=== PATIENT | female | born 1945 | race Caucasian/White ===

== ENCOUNTER 2016-06-19 11:06 | Day surgery (SDC) | payer MEDICARE, BC ==
[~2016-06-19 11:06] MED LIST: RINGERS SOLUTION,LACTATED 1,000 ML IV PRN
--- OUTSIDE RECORDS SUMMARY | 2016-06-19 11:11 | XMS REPORT | Continuity of Care Document ---
:1945 Author Organization [facility] ([facility]) Address [place] [address] Phone [phone] Support Name Relationship Address Phone Unavailable [address] [phone] [place] [address] Unavailable [employer] [address] [phone] [place] [address] Care Team Providers Name Role Phone Unavailable Primary Care Provider Unavailable Source Comments This disclosure is being made pursuant to the Care Everywhere program, applicable federal and state laws, and may not contain all informaitonavailable regarding this patient.[facility] ([facility]) Active Allergies and Adverse Reactions Not on File Current Medications Not on file Active Problems Not on file Social History Tobacco Use Types Packs/Day Years Used Date Never Assessed Plan of Care Health Maintenance Due Date Last Done Comments HCV Screening 1945 Hepatitis B Vaccine (1 of 3 - Primary Series) 1945 Tdap Vaccine 1956 Lipid Disorder Screening 07/31/1963 Td Vaccine 07/31/1963 Mammogram 1985 Colonoscopy 1995 Zoster Vaccine 2005 Osteoporosis Screening (DXA Bone Density) 2010 Pneumococcal Vaccine (1 of 2 - PCV13) 2010 Influenza Vaccine: Seasonal (#1) 11/15/2015 Results from Last 3 Months Not on file
--- OUTSIDE RECORDS SUMMARY | 2016-06-19 11:11 | XMS REPORT | Continuity of Care Document ---
:1945 Author Organization [employer] [place] [address] Care Team Providers Name Role Phone Provider, None Per Patient Primary Care Provider Unavailable Source Comments This disclosure is being made pursuant to the AudioCaseFiles program and maynot contain all information available regarding this patient.[employer] Active Allergies and Adverse Reactions Allergen Noted Date Severity Reactions Comments Sulfa Antibiotics 11/03/2015 Low Rash Current Medications Be aware that medications may not be up to date as of this document. Alwaysverify current medications with the patient. Prescription Sig. Disp. Refills Start Date End Date Status ALPRAZolam (XANAX) 1 MG TK 1 T PO 30 0 09/09/2015 Active tablet MINUTES PRIOR TO MRI AND REPEAT IF NEEDED omeprazole (PRILOSEC) 20 TK 1 C PO BID 4 09/20/2015 Active MG capsule verapamil (CALAN-SR) 240 TK 1 T PO QD 1 09/29/2015 Active MG CR tablet WITH FOOD simvastatin (ZOCOR) 20 MG TK 1 T PO QD 0 10/28/2015 Active tablet IN THE EVENING citalopram (CELEXA) 40 MG TK 1 T PO QD 2 10/28/2015 Active tablet hydrochlorothiazide TK 1 C PO QD 0 08/11/2015 Active (MICROZIDE) 12.5 MG capsule levothyroxine (SYNTHROID, TK 1 T PO QD 1 08/27/2015 Active LEVOTHROID) 25 MCG tablet busPIRone (BUSPAR) 15 MG TK 1 T PO BID 1 10/28/2015 Active tablet aspirin 81 MG EC tablet Take 81 mg by Active mouth daily. fish oil 1000 MG CAPS Take 1,000 mg Active by mouth daily. Calcium Carbonate-Vit Take by Active D-Min (CALCIUM 1200 PO) mouth. vitamin D Take 1,000 Active (CHOLECALCIFEROL) 1000 Units by mouth UNITS tablet daily. vitamin E 400 UNIT capsule Take 400 Units Active by mouth daily. Ascorbic Acid (VITAMIN C) Take 500 mg by Active 500 MG tablet mouth daily. HYDROcodone-acetaminophen Take 1 tablet 15 tablet 0 11/04/2015 Active (NORCO) 5-325 MG per by mouth every tablet 6 (six) hours as needed for Pain. Active Problems No known active problems Most Recent Encounters Date Type Specialty Providers Description 03/30/2016 Data Import Social History Tobacco Use Types Packs/Day Years Used Date Never Smoker Smokeless Tobacco: Never Used Last Filed Vital Signs Vital Sign Reading Time Taken Blood Pressure 122/60 11/03/2015 1:42 PM CDT Pulse 76 11/03/2015 1:42 PM CDT Temperature 37.4 C (99.3 F) 11/03/2015 1:42 PM CDT Respiratory Rate 16 11/03/2015 1:42 PM CDT Height - - Weight 81.194 kg (179 lb) 11/03/2015 1:42 PM CDT Body Mass Index - - Oxygen Saturation - - Plan of Care Health Maintenance Due Date Last Done Comments Hepatitis C Screening 07/31/1963 Tetanus/Pertussis (1 - Tdap) 1964 Colonoscopy 07/31/1995 Mammogram 07/31/1995 Well Adult Visit 07/31/1995 Zoster Vaccine 60+ 2005 Bone Density 2010 Pneumococcal Low/Medium Risk 65+ (1 of 2 - PCV13) 2010 Influenza Immunization (#1) 2015 Results from Last 3 Months Not on file
--- OUTSIDE RECORDS SUMMARY | 2016-06-19 11:12 | XMS REPORT | Summary of Care ---
:1945 Author Organization [facility] Address [address] [place] [id number] Care Team Providers Name Role Phone Diallo Pimentel Primary Care Physician Encounter Date(s): 08/31/15 - 08/31/[address] [id number] Discharge Disposition: 01 Discharged to Home or Self Care Attending Physician: Keyla Barakat MD Admitting Physician: Keyla Barakat MD Vital Signs No data available for this section Problem List Condition Effective Dates Status Health Status Informant Anxiety depression(Confirmed) Active Gastroesophageal reflux(Confirmed) Active Heart murmur(Confirmed) Active Hyperlipidemia(Confirmed) Active Hypertension(Confirmed) Active Hypothyroidism(Confirmed) Active Allergies, Adverse Reactions, Alerts Substance Reaction Severity Status Sulfur rash Active Medications aspirin 81 mg oral tablet 1 tab(s), Oral, Daily, # 30 tab(s), 0 Refill(s), Start Date: 08/23/15 13:43:00 CDT Start Date: 08/23/15 Status: OrderedbusPIRone 15 mg oral tablet 1 tab(s), Oral, BID, 0 Refill(s), Start Date: 08/23/15 13:44:00 CDT Start Date: 08/23/15 Status: OrderedCeleXA 40 mg oral tablet 1 tab(s), Oral, Daily, # 30 tab(s), 0 Refill(s), Start Date: 08/23/15 13:44:00 CDT Start Date: 08/23/15 Status: Orderedcetirizine 10 mg oral tablet 1 tab(s), Oral, Daily, # 30 tab(s), 0 Refill(s), Start Date: 08/23/15 13:44:00 CDT Start Date: 08/23/15 Status: Orderedfluticasone 50 mcg/inh nasal spray 1 spray(s), Nasal, BID, # 16 gm, 0 Refill(s), Start Date: 08/23/15 13:45:00 CDT Start Date: 08/23/15 Status: Orderedhydrochlorothiazide 12.5 mg oral capsule 1 cap(s), Oral, Daily, # 30 cap(s), 0 Refill(s), Start Date: 08/23/15 13:45:00 CDT Start Date: 08/23/15 Status: Orderedlevothyroxine 25 mcg (0.025 mg) oral tablet 1 tab(s), Oral, Daily, # 30 tab(s), 0 Refill(s), Start Date: 08/23/15 13:46:00 CDT Start Date: 08/23/15 Status: Orderednaproxen 500 mg oral delayed release tablet 1 tab(s), Oral, BID, # 60 tab(s), 0 Refill(s), Start Date: 08/23/15 14:02:00 CDT Start Date: 08/23/15 Status: Orderedomeprazole 20 mg oral delayed release tablet 1 tab(s), Oral, BID, # 30 tab(s), 0 Refill(s), Start Date: 08/23/15 14:03:00 CDT Start Date: 08/23/15 Status: Orderedsimvastatin 20 mg oral tablet 1 tab(s), Oral, HS, # 30 tab(s), 0 Refill(s), Start Date: 08/23/15 14:04:00 CDT Start Date: 08/23/15 Status: Orderedverapamil 180 mg/12 hours oral tablet, extended release 1 tab(s), Oral, Daily, # 30 tab(s), 0 Refill(s), Start Date: 08/23/15 14:13:00 CDT Start Date: 08/23/15 Status: Orderedverapamil 240 mg/12 hours oral tablet, extended release 1 tab(s), Oral, Daily, # 30 tab(s), 0 Refill(s), Start Date: 08/23/15 14:04:00 CDT Start Date: 08/23/15 Stop Date: 08/23/15 Status: DiscontinuedVitamin C 0 Refill(s), Start Date: 08/23/15 14:04:00 CDT Start Date: 08/23/15 Status: OrderedVitamin D with Minerals oral tablet tab(s), Oral, Daily, 0 Refill(s), Start Date: 08/23/15 14:05:00 CDT Start Date: 08/23/15 Status: Orderedvitamin E Oral, Daily, 0 Refill(s), Start Date: 08/23/15 14:05:00 CDT Start Date: 08/23/15 Status: Ordered Results Patient Viewable Results Most recent to oldest [Reference Range]: 1 WBC [4.8-10.8 thou/mm3] 5.5 thou/mm3 (08/31/15 7:48 AM) RBC [4.20-5.40 Mil/mm3] 4.31 Mil/mm3 (08/31/15 7:48 AM) Hgb [12.0-16.0 g/dL] 12.9 g/dL (08/31/15 7:48 AM) Hct [37.0-47.0 %] 37.9 % (08/31/15 7:48 AM) MCV [80.0-94.0 fL] 87.9 fL (08/31/15 7:48 AM) MCH [25.0-38.0 pg/cell] 29.9 pg/cell (08/31/15 7:48 AM) MCHC [31.0-37.0 g/dL] 34.0 g/dL (08/31/15 7:48 AM) RDW [1.0-48.0 fL] 41.9 fL (08/31/15 7:48 AM) Platelet [130-400 thou/mm3] 250 thou/mm3 (08/31/15 7:48 AM) Immunizations No data available for this section Procedures No data available for this section Social History No data available for this section Assessment and Plan No data available for this section
[2016-06-19] MEDS ORDERED: RINGERS SOLUTION,LACTATED 1,000 ML IV ONE (11:39)
[2016-06-19] MEDS ORDERED: PANTOPRAZOLE SODIUM 40 MG/100 ML PIGGYBACK IV ONE (13:36)
[2016-06-19] MEDS ORDERED: PANTOPRAZOLE SODIUM 40 MG in NORMAL SALINE 100 ML IV ONE (14:00)
[2016-06-19 14:18] VITALS: BP 156/72
--- NOTE | 2016-06-20 16:03 | OR ---
Operative Report - Dictated Report Narrative: Operative Report Date of operation: 06/19/2016 Preoperative diagnosis: GERD symptoms despite medication Postoperative diagnosis: Hiatal hernia. Significant fundal gastritis ( pathology and CLOtest pending) Operation: EGD with biopsies Surgeon: Dr Cummins Anesthesia: AUNG REINOSO CRNA Indications for procedure: The patient is a 70-year-old female referred by Dr. Pimentel. She had fracture of her left foot in March 2016 and took Aleve. She has had significant heartburn and reflux which has continued despite medication. Findings: Hiatal hernia. Significant fundal gastritis (see photos). Gastropathy (pathology and CLOtest pending) Narrative of procedure: The patient was identified preoperatively, and prior to the administration of anesthetic a multidisciplinary timeout was observed With the patient in the recumbent position, a bite-block was placed, intravenous sedation was administered, and the patient's eyes covered with a towel. The flexible fiberoptic gastroscope was advanced into the posterior pharynx which appeared normal. The supraglottic larynx appeared normal. The cords appeared normal, moved well, and opposed in the midline. The scope was advanced under direct vision into the proximal esophagus which appeared normal. The esophagus appeared freely distensible with normal mucosa. The esophageal mucosa appeared normal down to the gastroesophageal junction which was sharp and noninflamed. The GE junction appeared normally distensible. There was a small hiatal hernia. The scope was advanced into the stomach proper which was insufflated with air. There was herrera gastritic erythema and a retroflexed view of the gastric fundus revealed severe gastritis on fundal folds (see photograph). This area was biopsied for pathology and CLOtest. The biopsy sites were hemostatic. The scope was redirected toward the pylorus. The pylorus appeared patent. The scope was advanced into the duodenal bulb which appeared normal. The scope was advanced further to the horizontal portion of the duodenum which appeared normal, specifically the villous architecture appeared well preserved and clear bile was present. The scope was slowly withdrawn through the duodenal bulb with confirmation that no active ulcer was present. The scope was withdrawn into the stomach. The insufflated air was removed, the scope withdrawn from the patient, and the procedure terminated. The patient tolerated the anesthetic and procedure well without complication and was transferred back to the ambulatory surgery area awake and in stable condition. The patient remained stable throughout a period of postoperative observation, was able to tolerate by mouth intake, and was up without assistance. I shared the operative findings with her, and she was given copies of the photographs which appear in the medical record. She was given a single dose of Protonix 40 mg IV prior to discharge. She was discharged home with instructions not to engage in hazardous activity today, but may return to normal activity tomorrow and advance diet as tolerated. She is to continue medications as listed in the history and physical exam. I made arrangements to contact the patient with biopsy reports and will make further recommendation based upon that result. Reviewed and electronically signed
== END 2016-06-19 11:07 | disposition home or self-care (01) ==
LOC: AMB 11:06
PROVIDERS: ATTEND Surgery
PROC: 0DB68ZX Excision of Stomach, Via Natural or Artificial Opening Endoscopic, Diagnostic (ICD-10-PCS; principal; 2016-06-19 13:00)
DX: K21.9 Gastro-esophageal reflux disease without esophagitis (principal); K29.70 Gastritis, unspecified, without bleeding; K44.9 Diaphragmatic hernia without obstruction or gangrene; I10 Essential (primary) hypertension; E78.5 Hyperlipidemia, unspecified; E03.9 Hypothyroidism, unspecified; F41.1 Generalized anxiety disorder; F32.9 Major depressive disorder, single episode, unspecified; Z68.33 Body mass index [BMI] 33.0-33.9, adult

== ENCOUNTER 2017-02-13 14:18 | Inpatient (IN) | payer MEDICARE, BC ==
--- NOTE | 2017-02-13 14:37 | ERNOTE ---
Abdominal HPI - General Chief Complaint: Urinary Tract Problems Time Seen by Provider: 02/13/17 14:24 Source: patient Exam Limitations: no limitations - Immun/Allergies/Home Medications Immunizatons: IMMUNIZATION HX Immunizations Up to Date Yes History of Influenza Vaccine Yes Hx Pneumococcal Vaccination No Allergies/Adverse Reactions: Allergies Sulfa (Sulfonamide Antibiotics) [Sulfa(Sulfonamide Antibiotics)] Adverse Reaction (Mild, Verified 02/13/17 14:28) RASH Home Medications: HOME MEDICATIONS Aspirin [Aspirin Enteric Coated] 81 mg PO DAILY 06/12/16 [Last Taken Unknown] Buspirone HCl 15 mg PO BID 06/12/16 [Last Taken Unknown] Cetirizine HCl [Zyrtec] 10 mg PO DAILY 06/12/16 [Last Taken Unknown] Citalopram Hydrobromide [Celexa] 40 mg PO DAILY 06/12/16 [Last Taken Unknown] Cyclobenzaprine HCl [Flexeril] 10 mg PO HS 06/12/16 [Last Taken Unknown] Famotidine/Ca Carb/Mag Hydrox [Pepcid Complete Tablet Chew] 1 each PO BID [Last Taken Unknown] Fluticasone Propionate [Flonase] 1 spray NS BID 06/12/16 [Last Taken Unknown] Hydrochlorothiazide 12.5 mg PO DAILY 06/12/16 [Last Taken Unknown] Levothyroxine Sodium [Synthroid] 25 mcg PO DAILY 06/12/16 [Last Taken Unknown] Menthol [Biofreeze] 1 appl TP Q4H PRN 06/12/16 [Last Taken Unknown] Omeprazole [Prilosec] 20 mg PO BID 06/12/16 [Last Taken Unknown] Simvastatin [Zocor] 20 mg PO HS 06/12/16 [Last Taken Unknown] Verapamil HCl [Verapamil ER] 240 mg PO DAILY 06/12/16 [Last Taken Unknown] oxyCODONE HCL [Oxycodone] 5 mg PO QID PRN 02/13/17 [Last Taken Unknown] - History of Present Illness Narrative: Patient has had dysuria and frequency for a few days. Yesterday morning she started to have chills and a decreased appetite, this morning she started to vomit. She vomited multiple times, last around noon, multiple episodes of loose bowel movement. She has also felt dizzy and light headed, no syncope. She has a history of UTIs last in October. Abdominal pain only right before vomiting. Associated Symptoms: Present: fever/chills, nausea, vomiting. Absent: headache , back pain, shortness of breath Prior Abdominal Problems: Present: none Review of Systems - Review of Systems Constitutional: Present: fever - subjective, chills. Absent: recent illness ENT: Absent: nose congestion, sore throat Respiratory: Absent: shortness of breath, cough Cardiology: Absent: chest pain Gastrointestinal/Abdominal: Present: See HPI Genitourinary: Present: frequency, dysuria Musculoskeletal: Absent: back pain Neurological: Present: dizziness/light-headedness. Absent: headache - Patient's Past Medical History Patient History - Medical: Anxiety, Depression, GERD, Hypothyroidism, Other Patient History - Cardiac/Respiratory: Hypertension, Hyperlipidemia, Other Patient History - Cancer: No Hx of Cancer Patient History - Surgical Procedures: Back Surgery, Cataracts, Colonoscopy, EGD , Hysterectomy, Total Knee Replacement, Other Patient History - Other: None LMP (females 10-50): Menopausal - Family History Mother Family History - Medical: , Diabetes Type 2 Family History - Cardiac/Respiratory: Other Family History - Cancer: No pertinent family hx Sister Family History - Medical: , Alzheimer's Disease Family History - Cardiac/Respiratory: No pertinent hx Family History - Cancer: Colon - Social History Living Situations: home Abuse History: No History of abuse Psych History: Hx of Anxiety, Hx of Depression, Current tx/ever been on anti- depressants or anti-anxiety meds - Immunizations Immunizations Up to Date: Yes Hx Pneumococcal Vaccination: No History of Influenza Vaccine: Yes Physical Exam - Physical Exam General Appearance: Present: wd/wn, alert, no apparent distress Head Exam: Present: normal inspection Ears, Nose, Throat: Present: normal ENT inspection, normal pharynx Respiratory: Present: no respiratory distress, normal breath sounds, no accessory muscle use, lungs clear Cardiovascular/Chest: Present: regular rate, rhythm, no murmur Gastrointestinal/Abdominal: Present: normal bowel sounds, nontender, nondistended, soft Back Exam: Present: no CVA tenderness Extremity Exam: Present: no edema Neurological Exam: Present: alert, oriented, normal mood/affect, no motor/ sensory deficits Skin Exam: Present: normal color, warm/dry ED Progress - Results and Orders Patient's Lab Results:: I have reviewed the patient's lab results. - Vital Signs Patient's Vital Signs:: I have reviewed the patient's vital signs. Vital Signs: Vital Signs 02/13/17 14:22 Temperature 36.4 C L Pulse Rate 84 Respiratory 15 Rate Blood Pressure 108/59 O2 Sat by Pulse 98 Oximetry - Progress/Reassessment Chief Complaint: Urinary Tract Problems Progress Note-Subjective: 02/13/17 15:51 discussed results with patient, suggested admission due to UTI with sepsis, patient agrees no vomiting while here, tolerating po fluids 02/13/17 15:53 discussed with hugo Vivas to admit Departure Clinical Impression: Hyponatremia UTI (urinary tract infection) Qualifiers: Urinary tract infection type: acute cystitis Hematuria presence: with hematuria Qualified Code(s): N30.01 - Acute cystitis with hematuria Sepsis Qualifiers: Sepsis type: sepsis due to unspecified organism Qualified Code(s): A41.9 - Sepsis, unspecified organism - Departure Disposition: [facility] Condition: Good
[2017-02-13 15:08] LABS: Urine Bilirubin 1 mg/dl (NEGATIVE); Urine Blood 250 /ul (NEGATIVE); Urine Ketone Negative (NEGATIVE); Urine Nitrite Negative (NEGATIVE); Urine Protein 100 mg/dL (NEGATIVE); Urine Urobilinogen Normal (NORMAL)
[2017-02-13 15:13] LABS: Hemoglobin 12.5 gm/dL (12.5-16.0); Mean Cell Volume 85.1 fl (78-100); Mean Corpuscular Hemoglobin 29.6 pg (27-31); Mean Corpuscular Hgb Conc 34.7 g/dl (32-36); Mean Platelet Volume 8.9 fl (6.0-9.5); Platelet Count 251 K/mm3 (150-450); Red Blood Count 4.23 M/mm3 (4.2-5.4); Red Cell Distribution Width 13.2 % (11.5-14.0); White Blood Count 19.4 K/mm3 (4.0-10.5)
[2017-02-13 15:26] LABS: Urine Appearance Turbid; Urine Color Dark Yellow; Urine RBC >50 /hpf (0-5); Urine WBC >50 /hpf (0-5)
[2017-02-13 15:28] LABS: Total Cells Counted 100
[2017-02-13 15:33] LABS: ALT 23 U/L (19-67); AST 24 U/L (0-48); Albumin * 3.6 gm/dl (3.4-5.0); Alkaline Phosphatase * 116 U/L (50-170); Anion Gap 15.9 mmol/L (6.8-13.8); BUN/Creatinine Ratio 11.5 (9.0-21.6); Blood Urea Nitrogen 15 mg/dL (3-23); Ca. Corrected For Albumin 9.5 mg/dL (8.4-10.2); Calcium * 9.5 mg/dL (7.9-10.9); Carbon Dioxide 24.6 mmol/L (24-32.6); Chloride 91 mmol/L (97-106); Glucose * 136 mg/dL (70-110); Potassium 3.5 mmol/L (3.4-4.6); Sodium 128 mmol/L (132-142); Total Protein 7.6 gm/dL (6.2-8.2); Troponin I Less than 0.017 ng/ml (0.00-0.10)
[2017-02-13 15:39] LABS: Band 9 % (0-2.0); Eosinophil 1 % (0-3); Immature Granulocyte 1 (0-1); Lymphocyte 1 % (20-51); Monocyte 12 % (0-9); Neutrophil 76 % (42-75); Neutrophil # 14.7 K/mm3 (1.3-6.0)
[2017-02-13 15:43] LABS: Dohle Bodies 3+; Platelet Estimate Normal (NORMAL); RBC Morphology Normal (NORMAL)
[2017-02-13 15:44] LABS: Toxic Granulation 2+
[2017-02-13] MEDS: NORMAL SALINE 1,000 ML IV PRN ×3 (16:08→18:58)
--- NOTE | 2017-02-13 17:15 | HP ---
Chief Complaint - Chief Complaint Date of Service: 02/13/17 Time of Service: 17:09 Chief Complaint: fever/chills History of Present Illness: Donna Simpson, is a 71-year-old white female, patient of Dr. Pimentel, with previous medical history of hypertension, hyperlipidemia, hypothyroidism, who was admitted today on 02/13/2017 because of fever and chills. 3 days prior to admission patient started having some painful urinary spasms whenever she would urinate should she did with increased frequency. But 2 days prior to admission patient started having some chills and decreased appetite this morning first patient started having fever and chills with drenching sweats associated with loose bowel movement lightheadedness and dizziness. She then went to the emergency room where she was found to have a urinary tract infection and elevated WBC count with an elevated lactic acid. She was also found to be hyponatremic with a sodium of 129. She was then admitted with the admitting impression of sepsis and urinary tract infection. - Patient's Past Medical History Patient History - Medical: Anxiety, Depression, GERD, Hypothyroidism, Other Patient History - Cardiac/Respiratory: Hypertension, Hyperlipidemia, Other Patient History - Cancer: No Hx of Cancer Patient History - Surgical Procedures: Back Surgery, Cataracts, Colonoscopy, EGD , Hysterectomy, Total Knee Replacement, Other Patient History - Other: None LMP (females 10-50): Menopausal - Family History Mother Family History - Medical: , Diabetes Type 2 Family History - Cardiac/Respiratory: Other Family History - Cancer: No pertinent family hx Sister Family History - Medical: , Alzheimer's Disease Family History - Cardiac/Respiratory: No pertinent hx Family History - Cancer: Colon - Social History Living Situations: home Abuse History: No History of abuse Psych History: Hx of Anxiety, Hx of Depression, Current tx/ever been on anti- depressants or anti-anxiety meds - Immunizations Immunizations Up to Date: Yes Hx Pneumococcal Vaccination: No History of Influenza Vaccine: Yes Review Of Systems (GEN) - Review of Systems Generalized/Overall Review: Present: Weakness, Chills, Fever EENTM: Present: No Symptoms Reported Respiratory: Absent: Cough, Shortness of Breath, Wheezing Cardiac: Absent: Chest Pain, Edema, Palpitations Abdominal: Present: Nausea, Abdominal Pain, Other - loose stools Genitourinary: Present: Urgency, Frequency, Dysuria Musculoskeletal: Absent: Joint Pain Immunizations: IMMUNIZATION HX Immunizations Up to Date Yes History of Influenza Vaccine Yes Hx Pneumococcal Vaccination No Allergies/Adverse Reactions: Allergies Allergy/AdvReac Type Severity Reaction Status Date / Time Sulfa (Sulfonamide AdvReac Mild RASH Verified 02/13/17 14:28 Antibiotics) [Sulfa(Sulfonamide Antibiotics)] Home Medications: HOME MEDICATIONS Aspirin [Aspirin Enteric Coated] 81 mg PO DAILY 06/12/16 [Last Taken Unknown] Buspirone HCl 15 mg PO BID 06/12/16 [Last Taken Unknown] Cetirizine HCl [Zyrtec] 10 mg PO DAILY 06/12/16 [Last Taken Unknown] Citalopram Hydrobromide [Celexa] 40 mg PO DAILY 06/12/16 [Last Taken Unknown] Cyclobenzaprine HCl [Flexeril] 10 mg PO HS 06/12/16 [Last Taken Unknown] Famotidine/Ca Carb/Mag Hydrox [Pepcid Complete Tablet Chew] 1 each PO BID [Last Taken Unknown] Fluticasone Propionate [Flonase] 1 spray NS BID 06/12/16 [Last Taken Unknown] Hydrochlorothiazide 12.5 mg PO DAILY 06/12/16 [Last Taken Unknown] Levothyroxine Sodium [Synthroid] 25 mcg PO DAILY 06/12/16 [Last Taken Unknown] Menthol [Biofreeze] 1 appl TP Q4H PRN 06/12/16 [Last Taken Unknown] Omeprazole [Prilosec] 20 mg PO BID 06/12/16 [Last Taken Unknown] Simvastatin [Zocor] 20 mg PO HS 06/12/16 [Last Taken Unknown] Verapamil HCl [Verapamil ER] 240 mg PO DAILY 06/12/16 [Last Taken Unknown] oxyCODONE HCL [Oxycodone] 5 mg PO QID PRN 02/13/17 [Last Taken Unknown] Exam - Exam Vital Signs: Vital Signs - Last Taken Temp 36.4 C L 02/13/17 14:22 Pulse 84 02/13/17 15:19 Resp 14 02/13/17 15:19 BP 128/47 02/13/17 15:19 Pulse Ox 96 02/13/17 15:19 Constitutional: Present: Alert, Oriented x3, Cooperative, Elderly ENT Exam: Present: hearing grossly normal Eye Exam: bilateral eye: normal inspection, PERRL, EOMI Neck: Present: supple Back Exam: Present: no CVA tenderness Breasts: Present: Exam deferred Respiratory: Present: normal breath sounds, No rales, No wheezing Cardiovascular/Chest: Present: regular rate, rhythm, no gallop, no JVD Abdomen: Present: Normal bowel sounds, soft, nontender, nondistended Extremity: Present: no calf tenderness, pedal edema Diagnostic Studies: Laboratory Results WBC 19.4 K/mm3 (4.0-10.5) H 02/13/17 15:04 RBC 4.23 M/mm3 (4.2-5.4) 02/13/17 15:04 Hgb 12.5 gm/dL (12.5-16.0) 02/13/17 15:04 Hct 36.0 % (37.0-47.0) L 02/13/17 15:04 MCV 85.1 fl (78-100) 02/13/17 15:04 MCH 29.6 pg (27-31) 02/13/17 15:04 MCHC 34.7 g/dl (32-36) 02/13/17 15:04 RDW 13.2 % (11.5-14.0) 02/13/17 15:04 Plt Count 251 K/mm3 (150-450) 02/13/17 15:04 MPV 8.9 fl (6.0-9.5) 02/13/17 15:04 Neutrophils % (Manual) 76 % (42-75) H 02/13/17 15:04 Band Neuts % (Manual) 9 % (0-2.0) H 02/13/17 15:04 Lymphocytes % (Manual) 1 % (20-51) L 02/13/17 15:04 Monocytes % (Manual) 12 % (0-9) H 02/13/17 15:04 Eosinophils % (Manual) 1 % (0-3) 02/13/17 15:04 Immature Granulocytes 1 (0-1) 02/13/17 15:04 Neutrophils # (Manual) 14.7 K/mm3 (1.3-6.0) H 02/13/17 15:04 Lymphocytes # (Manual) 0.2 k/mm3 (1.5-3.5) L 02/13/17 15:04 Monocytes # (Manual) 2.3 k/mm3 (0.0-1.0) H 02/13/17 15:04 Eosinophils # (Manual) 0.2 k/mm3 (0.0-0.7) 02/13/17 15:04 Toxic Granulation 2+ 02/13/17 15:04 Toxic Vacuolation 2+ 02/13/17 15:04 Dohle Bodies 3+ 02/13/17 15:04 Platelet Estimate Normal (NORMAL) 02/13/17 15:04 RBC Morphology Normal (NORMAL) 02/13/17 15:04 Sodium 128 mmol/L (132-142) L 02/13/17 15:04 Plasma Sodium 129 mmol/L (130-142) L 02/13/17 15:04 Potassium 3.5 mmol/L (3.4-4.6) 02/13/17 15:04 Chloride 91 mmol/L (97-106) L 02/13/17 15:04 Carbon Dioxide 24.6 mmol/L (24-32.6) 02/13/17 15:04 Anion Gap 15.9 mmol/L (6.8-13.8) H 02/13/17 15:04 BUN 15 mg/dL (3-23) 02/13/17 15:04 Creatinine 1.30 mg/dL (0.4-1.4) 02/13/17 15:04 Est GFR (Non-Af Amer) 43 mL/min (60-130) L D 02/13/17 15:04 BUN/Creatinine Ratio 11.5 (9.0-21.6) 02/13/17 15:04 Random Glucose 136 mg/dL (70-110) H 02/13/17 15:04 Lactic Acid, Venous 2.1 mmol/L (0.4-1.9) H* 02/13/17 15:04 Calcium 9.5 mg/dL (7.9-10.9) 02/13/17 15:04 Calcium Adj for Albumin 9.5 mg/dL (8.4-10.2) 02/13/17 15:04 Total Bilirubin 1.0 mg/dL (0.0-1.1) 02/13/17 15:04 AST 24 U/L (0-48) 02/13/17 15:04 ALT 23 U/L (19-67) 02/13/17 15:04 Alkaline Phosphatase 116 U/L (50-170) 02/13/17 15:04 Troponin I Less than 0.017 ng/ml (0.00-0.10) 02/13/17 15:04 Total Protein 7.6 gm/dL (6.2-8.2) 02/13/17 15:04 Albumin 3.6 gm/dl (3.4-5.0) 02/13/17 15:04 Urine Color Dark yellow 02/13/17 14:45 Urine Appearance Turbid 02/13/17 14:45 Urine pH 6.0 pH (5.0-7.0) 02/13/17 14:45 Ur Specific [place] 1.020 SP.GR. (1.005-1.010) 02/13/17 14:45 Urine Protein 100 mg/dL (NEGATIVE) H 02/13/17 14:45 Urine Glucose (UA) Negative mg/dL (NEGATIVE) 02/13/17 14:45 Urine Ketones Negative mg/dL (NEGATIVE) 02/13/17 14:45 Urine Blood 250 /ul (NEGATIVE) H 02/13/17 14:45 Urine Nitrate Negative (NEGATIVE) 02/13/17 14:45 Urine Bilirubin 1 mg/dl (NEGATIVE) H 02/13/17 14:45 Urine Ictotest Negative (NEGATIVE) 02/13/17 14:45 Prot Sulfosalicylic Acd 4+ mg/dL (0) H 02/13/17 14:45 Urine Urobilinogen Normal EU/dl (NORMAL) 02/13/17 14:45 Ur Leukocyte Esterase 500 /ul (NEGATIVE) H 02/13/17 14:45 Urine RBC >50 /hpf (0-5) H 02/13/17 14:45 Urine WBC >50 /hpf (0-5) H 02/13/17 14:45 Urine Culture Comments Culture to follow 02/13/17 14:45 Assessment/Plan - Assessment/Plan (1) Sepsis Assessment: rule out sepsis. Problem: Acute Qualifiers: Sepsis type: sepsis due to unspecified organism Qualified Code(s): A41.9 - Sepsis, unspecified organism (2) UTI (urinary tract infection) Assessment: continue with IV Rocephin. await C and S. Problem: Acute Qualifiers: Urinary tract infection type: acute cystitis Hematuria presence: with hematuria Qualified Code(s): N30.01 - Acute cystitis with hematuria (3) Hyponatremia Assessment: continue with IVF . will hold HCTZ for now. Problem: Acute (4) Hypothyroidism Assessment: continue with home medications Problem: Chronic (5) Hypertension Assessment: continue with home medications. Problem: Chronic Qualifiers: Hypertension type: essential hypertension Qualified Code(s): I10 - Essential (primary) hypertension (6) Anxiety and depression Assessment: continue with ome medications Problem: Chronic
[2017-02-13] MEDS: ACETAMINOPHEN 325 MG TABLET PO PRN (18:57)
[2017-02-13] MEDS ORDERED: oxyCODONE HCL 5 MG TABLET PO PRN (20:35)
[2017-02-13 20:40] LABS: Anion Gap 15.5 mmol/L (6.8-13.8); BUN/Creatinine Ratio 11.8 (9.0-21.6); Calcium * 7.9 mg/dL (7.9-10.9); Carbon Dioxide 21.3 mmol/L (24-32.6); Estimated Creat Clear 32.1; Potassium 2.8 mmol/L (3.4-4.6)
[2017-02-13] MEDS ORDERED: [UNRECOGNIZED DRUG - OTHER] IV ONE (21:00)
[2017-02-13] MEDS ORDERED: POTASSIUM CHLORIDE IV ONE (21:00)
[2017-02-13] MEDS: busPIRone HCL 5 MG TABLET PO SCH (21:22)
[2017-02-13] MEDS: FLUTICASONE PROPIONATE 120 SPRAY INHALER NS SCH (21:23)
[2017-02-13] MEDS: CYCLOBENZAPRINE HCL 10 MG TABLET PO SCH ×2 (21:23)
[2017-02-13] MEDS: SIMVASTATIN 20 MG TABLET PO SCH (21:23)
[2017-02-13] MEDS: ALBUTEROL SULFATE/IPRATROPIUM 3 ML NEBU IH SCH ×2 (21:39→22:01)
[2017-02-13] MEDS: POTASSIUM CHLORIDE 100 ML IV SCH ×2 (22:11→23:04)
[2017-02-13] MEDS ORDERED: POTASSIUM CHLORIDE 20 MEQ TABLET.SA PO ONE (22:48)
[2017-02-13] MEDS: AZITHROMYCIN 500 MG in DEXTROSE 5 % IN WATER 250 ML IV SCH ×2 (22:50)
[2017-02-14] MEDS ORDERED: POTASSIUM CHLORIDE 20 MEQ TABLET.SA PO ONE (02:00)
[2017-02-14] MEDS: ALBUTEROL SULFATE/IPRATROPIUM 3 ML NEBU IH SCH ×6 (02:10→23:23)
[2017-02-14] MEDS: ACETAMINOPHEN 325 MG TABLET PO PRN ×3 (02:14→20:23)
[2017-02-14 05:53] LABS: Hematocrit 31.4 % (37.0-47.0); Hemoglobin 10.5 gm/dL (12.5-16.0); Mean Cell Volume 88.2 fl (78-100); Mean Corpuscular Hemoglobin 29.5 pg (27-31); Mean Corpuscular Hgb Conc 33.4 g/dl (32-36); Mean Platelet Volume 9.3 fl (6.0-9.5); Platelet Count 176 K/mm3 (150-450); Red Blood Count 3.56 M/mm3 (4.2-5.4); Red Cell Distribution Width 13.4 % (11.5-14.0); White Blood Count 21.2 K/mm3 (4.0-10.5)
[2017-02-14 06:00] LABS: Total Cells Counted 100
[2017-02-14 06:07] LABS: Anion Gap 15.9 mmol/L (6.8-13.8); BUN/Creatinine Ratio 11.4 (9.0-21.6); Calcium * 8.5 mg/dL (7.9-10.9); Carbon Dioxide 20.3 mmol/L (24-32.6); Estimated Creat Clear 30.9; Potassium 3.2 mmol/L (3.4-4.6)
[2017-02-14 06:19] LABS: Band 15 % (0-2.0); Immature Granulocyte 1 (0-1); Lymphocyte 6 % (20-51); Monocyte 6 % (0-9); Neutrophil 72 % (42-75); Neutrophil # 15.3 K/mm3 (1.3-6.0)
[2017-02-14 06:20] LABS: Dohle Bodies 1+; Platelet Estimate Normal (NORMAL); Toxic Granulation 2+
[2017-02-14] MEDS: PANTOPRAZOLE SODIUM 20 MG TABLET.DR PO SCH (07:11)
[2017-02-14] MEDS: LEVOTHYROXINE SODIUM 25 MCG TABLET PO SCH (07:11)
--- NOTE | 2017-02-14 07:59 | PN ---
Subjective - Date and Time Seen Date: 02/14/17 Time: 07:51 Subjective Narrative: She feels weak. She does say that at times when she eats her cereal in the morning, she would start choking, cough and get teary eyed, and feel like vomiting. Objective - Review of Systems Generalized/Overall Review: Reports: Weakness, Chills, Fever EENTM: Reports: No Symptoms Reported Respiratory: Reports: Cough, Shortness of Breath Cardiac: Denies: Chest Pain, Edema, Palpitations Abdominal: Reports: Nausea. Denies: Vomiting Genitourinary Symptoms: Reports: Frequency, Dysuria. Denies: Urgency - Vitals Vitals: Last Vital Signs Temp 36.4 C L 02/14/17 03:27 Pulse 83 02/14/17 06:33 Resp 18 02/14/17 06:33 BP 117/52 02/14/17 02:37 Pulse Ox 95 02/14/17 06:23 - Abnormal Lab Findings Abnormal Lab Findings: Abnormal Lab Results 02/13/17 02/13/17 02/14/17 Range/Units 18:05 20:14 05:40 WBC 21.2 H (4.0-10.5) K/mm3 RBC 3.56 L (4.2-5.4) M/mm3 Hgb 10.5 L (12.5-16.0) gm/dL Hct 31.4 L (37.0-47.0) % Band Neuts % (Manual) 15 H (0-2.0) % Lymphocytes % (Manual) 6 L (20-51) % Neutrophils # (Manual) 15.3 H (1.3-6.0) K/mm3 Lymphocytes # (Manual) 1.3 L (1.5-3.5) k/mm3 Monocytes # (Manual) 1.3 H (0.0-1.0) k/mm3 Nucleated RBCs 5.0 H (0-1) % Sodium 130 L (132-142) mmol/L Potassium 2.8 L (3.4-4.6) mmol/L Chloride 96 L (97-106) mmol/L Carbon Dioxide 21.3 L (24-32.6) mmol/L Anion Gap 15.5 H (6.8-13.8) mmol/L Est GFR (Non-Af Amer) 44 L (60-130) mL/min Random Glucose (70-110) mg/dL Lactic Acid, Venous 5.6 H* (0.4-1.9) mmol/L B-Natriuretic Peptide 1575 H (5-325) pg/mL 02/14/17 02/14/17 Range/Units 05:40 05:40 WBC (4.0-10.5) K/mm3 RBC (4.2-5.4) M/mm3 Hgb (12.5-16.0) gm/dL Hct (37.0-47.0) % Band Neuts % (Manual) (0-2.0) % Lymphocytes % (Manual) (20-51) % Neutrophils # (Manual) (1.3-6.0) K/mm3 Lymphocytes # (Manual) (1.5-3.5) k/mm3 Monocytes # (Manual) (0.0-1.0) k/mm3 Nucleated RBCs (0-1) % Sodium 129 L (132-142) mmol/L Potassium 3.2 L (3.4-4.6) mmol/L Chloride 96 L (97-106) mmol/L Carbon Dioxide 20.3 L (24-32.6) mmol/L Anion Gap 15.9 H (6.8-13.8) mmol/L Est GFR (Non-Af Amer) 42 L (60-130) mL/min Random Glucose 168 H D (70-110) mg/dL Lactic Acid, Venous 3.1 H* (0.4-1.9) mmol/L B-Natriuretic Peptide (5-325) pg/mL - Exam Constitutional: Present: Alert, Oriented x3, Cooperative ENT Exam: Present: hearing grossly normal Neck: Present: supple Respiratory: Present: decreased breath sounds, No rales, No wheezing Cardiovascular/Chest: Present: regular rate, rhythm, no JVD, no murmur Abdomen: Present: Normal bowel sounds, soft, nontender, nondistended Extremity: Present: no pedal edema, no calf tenderness Assessment/Plan - Problems/Diagnosis (1) UTI (urinary tract infection) Problem: Acute Qualifiers: Urinary tract infection type: acute cystitis Hematuria presence: with hematuria Qualified Code(s): N30.01 - Acute cystitis with hematuria Narrative: continue with IV antibiotics. Gram Negative bacilli on UCS. (2) Pneumonia Problem: Acute Qualifiers: Pneumonia type: aspiration pneumonia Narrative: r/o aspiration. will get speech therapy evaluation. will change rocephin to meropenem. (3) Hyponatremia Problem: Acute (4) Hypothyroidism Problem: Chronic (5) Hypertension Problem: Chronic Qualifiers: Hypertension type: essential hypertension Qualified Code(s): I10 - Essential (primary) hypertension (6) Anxiety and depression Problem: Chronic (7) Lactic acidosis Problem: Acute
[2017-02-14] MEDS ORDERED: POTASSIUM CHLORIDE 10 MEQ TABLET.SA PO ONE (08:01)
[2017-02-14] MEDS: busPIRone HCL 5 MG TABLET PO SCH ×2 (08:38→20:17)
[2017-02-14] MEDS: CITALOPRAM HYDROBROMIDE 20 MG TABLET PO SCH (08:39)
[2017-02-14] MEDS: FAMOTIDINE 20 MG TABLET PO SCH (08:39)
[2017-02-14] MEDS: ASPIRIN 81 MG TABLET.DR PO SCH (08:40)
[2017-02-14] MEDS: VERAPAMIL HCL 240 MG TABLET.SA PO SCH (08:40)
[2017-02-14] MEDS: LORATADINE 10 MG TABLET PO SCH (08:40)
[2017-02-14] MEDS: FLUTICASONE PROPIONATE 120 SPRAY INHALER NS SCH ×2 (08:41→20:16)
[2017-02-14] MEDS ORDERED: VERAPAMIL HCL 120 MG TABLET.SA PO ONE (08:45)
[2017-02-14] MEDS: NORMAL SALINE 1,000 ML IV PRN ×2 (08:46→18:49)
[2017-02-14] MEDS: ENOXAPARIN SODIUM 40 MG/0.4 ML SYRG SC SCH (08:48)
[2017-02-14] MEDS: CYCLOBENZAPRINE HCL 10 MG TABLET PO SCH ×3 (08:51→20:24)
[2017-02-14] MEDS: MEROPENEM 1 GM in NORMAL SALINE 100 ML IV SCH ×2 (08:53→20:15)
[2017-02-14] MEDS: SACCHAROMYCES BOULARDII 250 MG CAPSULE PO SCH ×2 (09:16→20:16)
[2017-02-14] MEDS: SIMVASTATIN 20 MG TABLET PO SCH (20:16)
[2017-02-14] MEDS: AZITHROMYCIN 500 MG in DEXTROSE 5 % IN WATER 250 ML IV SCH ×2 (21:47)
[2017-02-14] MEDS ORDERED: PANTOPRAZOLE SODIUM 20 MG TABLET.DR PO ONE (22:16)
[2017-02-15] MEDS: ALBUTEROL SULFATE/IPRATROPIUM 3 ML NEBU IH SCH ×7 (02:25→23:44)
[2017-02-15] MEDS: NORMAL SALINE 1,000 ML IV PRN ×2 (06:25→19:20)
[2017-02-15] MEDS: PANTOPRAZOLE SODIUM 20 MG TABLET.DR PO SCH (06:30)
[2017-02-15] MEDS: LEVOTHYROXINE SODIUM 25 MCG TABLET PO SCH (06:30)
[2017-02-15] MEDS ORDERED: POTASSIUM CHLORIDE 100 ML IV SCH (07:00)
--- NOTE | 2017-02-15 07:10 | PN ---
Subjective - Date and Time Seen Date: 02/15/17 Time: 07:00 Subjective Narrative: She does feel better than when she first came in, has been doing breathing treatments which has helped her breathing and cough. She isn't sleeping well here. Her stomach and body hurts from coughing and being sick. Objective - Review of Systems Generalized/Overall Review: Reports: Weakness, Malaise, Fatigue. Denies: Chills , Fever EENTM: Reports: No Symptoms Reported Respiratory: Reports: Cough. Denies: Shortness of Breath, Wheezing Cardiac: Denies: Chest Pain, Edema Abdominal: Reports: Abdominal Pain. Denies: Nausea, Vomiting, Constipation, Diarrhea Genitourinary Symptoms: Reports: No Symptoms Reported Musculoskeletal Complaints: Reports: Muscle Pain Neurological: Reports: Weakness Skin: Reports: No Symptoms Reported Endocrine: Reports: No Symptoms Reported - Vitals Vitals: Last Vital Signs Temp 36.7 C 02/15/17 02:18 Pulse 88 02/15/17 05:00 Resp 20 02/15/17 04:32 BP 140/68 02/15/17 02:18 Pulse Ox 95 02/15/17 04:22 - Exam Constitutional: Present: Alert, Oriented x3, Cooperative, Mild distress, Other - ill appearing ENT Exam: Present: hearing grossly normal Neck: Present: supple Respiratory: Present: chest non-tender, no respiratory distress, no accessory muscle use, rales - RML and RLL, otherwise clear farhad Cardiovascular/Chest: Present: regular rate, rhythm, no chest tenderness, no murmur Abdomen: Present: Normal bowel sounds, soft, tender - diffusely /Rectal: Present: Exam deferred Extremity: Present: no pedal edema, no calf tenderness Skin Exam: Present: normal color Neurologic: Present: normal mood/affect, oriented x 3 Appearance: Present: appropriate appearance, appropriate insight, neat Eye contact: Present: good eye contact, normal speech Thoughts: Present: normal thought pattern, no apparent hallucination Assessment/Plan - Problems/Diagnosis (1) Hypokalemia Problem: Acute Narrative: due to IVF given for sepsis, plus her HCTZ -which has been held, will continue oral replacement KCL. (2) Leukocytosis Problem: Acute Qualifiers: Leukocytosis type: bandemia Qualified Code(s): D72.825 - Bandemia Narrative: due to sepsis. will recheck today as yesterday was higher than admit numbers. (3) Sepsis Problem: Acute Qualifiers: Sepsis type: Escherichia coli Qualified Code(s): A41.51 - Sepsis due to Escherichia coli [E. coli] Narrative: blood growing out gram negative bacilli. UCx shows E. coli. continue current abx for now. Lactic acid was still high yesterday. Will recheck today. (4) Lactic acidosis Problem: Acute (5) Pneumonia Problem: Acute Qualifiers: Pneumonia type: aspiration pneumonia Laterality: right Lung location: middle lobe of lung Narrative: most likely aspiration given location and history of choking when eating. Speech eval was ordered but I have not seen results of consult yet. (6) UTI (urinary tract infection) Problem: Acute Qualifiers: Urinary tract infection type: acute cystitis Hematuria presence: with hematuria Qualified Code(s): N30.01 - Acute cystitis with hematuria Narrative: E. coli. sensitive to current Abx. consider change to levaquin for PO transition home. Due to sepsis will do at least 10 days of Abx tx. (7) Hypertension Problem: Chronic Qualifiers: Hypertension type: essential hypertension Qualified Code(s): I10 - Essential (primary) hypertension Narrative: stable (8) Hypothyroidism Problem: Chronic Qualifiers: Hypothyroidism type: acquired Qualified Code(s): E03.9 - Hypothyroidism, unspecified Narrative: stable. (9) Discharge planning issues Problem: Acute Narrative: hopefully home in the am. Could possibly go home this pm if she labs normalize or improve, she is able to ambulate well in the halls and is tolerating PO well , but feel tomorrow am more likely and more appropriate timeframe.
[2017-02-15 07:12] LABS: Hematocrit 28.9 % (37.0-47.0); Hemoglobin 9.9 gm/dL (12.5-16.0); Mean Cell Volume 86.5 fl (78-100); Mean Corpuscular Hemoglobin 29.6 pg (27-31); Mean Corpuscular Hgb Conc 34.3 g/dl (32-36); Mean Platelet Volume 9.5 fl (6.0-9.5); Platelet Count 171 K/mm3 (150-450); Red Blood Count 3.34 M/mm3 (4.2-5.4)
[2017-02-15 07:25] LABS: Albumin * 2.4 gm/dl (3.4-5.0); Anion Gap 14.5 mmol/L (6.8-13.8); BUN/Creatinine Ratio 12.5 (9.0-21.6); Bilirubin, Total 0.6 mg/dL (0.0-1.1); Ca. Corrected For Albumin 9.6 mg/dL (8.4-10.2); Calcium * 8.6 mg/dL (7.9-10.9); Carbon Dioxide 22.7 mmol/L (24-32.6); Potassium 4.2 mmol/L (3.4-4.6); Total Protein 6.2 gm/dL (6.2-8.2)
[2017-02-15 07:26] LABS: Total Cells Counted 100
[2017-02-15 07:43] LABS: Atypical (Reactive) Lymph 1 % (0-2); Band 16 % (0-2.0); Lymphocyte 2 % (20-51); Monocyte 3 % (0-9); Neutrophil 78 % (42-75); Neutrophil # 17.2 K/mm3 (1.3-6.0); Platelet Estimate Normal (NORMAL); RBC Morphology Normal (NORMAL)
[2017-02-15] MEDS: ENOXAPARIN SODIUM 40 MG/0.4 ML SYRG SC SCH (08:21)
[2017-02-15] MEDS: ASPIRIN 81 MG TABLET.DR PO SCH (08:22)
[2017-02-15] MEDS: VERAPAMIL HCL 240 MG TABLET.SA PO SCH (08:23)
[2017-02-15] MEDS: LORATADINE 10 MG TABLET PO SCH (08:24)
[2017-02-15] MEDS: FAMOTIDINE 20 MG TABLET PO SCH (08:26)
[2017-02-15] MEDS: POTASSIUM CHLORIDE 20 MEQ TABLET.SA PO SCH ×2 (08:26→16:50)
[2017-02-15] MEDS: busPIRone HCL 5 MG TABLET PO SCH ×2 (08:35→20:57)
[2017-02-15] MEDS: CITALOPRAM HYDROBROMIDE 20 MG TABLET PO SCH (08:35)
[2017-02-15] MEDS: FLUTICASONE PROPIONATE 120 SPRAY INHALER NS SCH ×2 (08:36→20:59)
[2017-02-15] MEDS: MEROPENEM 1 GM in NORMAL SALINE 100 ML IV SCH (08:36)
[2017-02-15] MEDS: CYCLOBENZAPRINE HCL 10 MG TABLET PO SCH ×3 (10:31→20:59)
[2017-02-15] MEDS: SACCHAROMYCES BOULARDII 250 MG CAPSULE PO SCH ×2 (10:33→20:59)
[2017-02-15] MEDS ORDERED: ALPRAZolam 0.25 MG TABLET PO PRN (12:12)
[2017-02-15] MEDS: LEVOFLOXACIN 500 MG TABLET PO SCH (12:43)
[2017-02-15] MEDS ORDERED: CALCIUM CARBONATE 500 MG TAB.CHEW PO PRN (13:59)
[2017-02-15] MEDS: SIMVASTATIN 20 MG TABLET PO SCH (20:59)
[2017-02-15] MEDS: guaiFENesin/DEXTROMETHORPHAN 118 ML BTL PO PRN (21:10)
[2017-02-16] MEDS: guaiFENesin/DEXTROMETHORPHAN 118 ML BTL PO PRN (01:47)
[2017-02-16] MEDS: ALBUTEROL SULFATE/IPRATROPIUM 3 ML NEBU IH SCH ×3 (02:44→13:20)
[2017-02-16] MEDS ORDERED: ALBUTEROL SULFATE 2.5 MG/0.5 ML VIAL.NEB IH PRN (05:16)
[2017-02-16 05:54] LABS: Hematocrit 28.7 % (37.0-47.0); Mean Cell Volume 85.4 fl (78-100); Mean Corpuscular Hemoglobin 29.8 pg (27-31); Mean Corpuscular Hgb Conc 34.8 g/dl (32-36); Mean Platelet Volume 9.3 fl (6.0-9.5); Neutrophil # 12.7 K/mm3 (1.3-6.0); Neutrophil % 85.4 % (42-75.0); Platelet Count 190 K/mm3 (150-450); Red Blood Count 3.36 M/mm3 (4.2-5.4); Red Cell Distribution Width 14.3 % (11.5-14.0); White Blood Count 14.9 K/mm3 (4.0-10.5)
[2017-02-16] MEDS: PANTOPRAZOLE SODIUM 20 MG TABLET.DR PO SCH (06:44)
[2017-02-16] MEDS: LEVOTHYROXINE SODIUM 25 MCG TABLET PO SCH (06:44)
[2017-02-16] MEDS: CYCLOBENZAPRINE HCL 10 MG TABLET PO SCH (06:44)
[2017-02-16] MEDS: ENOXAPARIN SODIUM 40 MG/0.4 ML SYRG SC SCH (08:12)
[2017-02-16] MEDS: VERAPAMIL HCL 240 MG TABLET.SA PO SCH (08:14)
[2017-02-16] MEDS: ASPIRIN 81 MG TABLET.DR PO SCH (08:15)
[2017-02-16] MEDS: busPIRone HCL 5 MG TABLET PO SCH (08:15)
[2017-02-16] MEDS: CITALOPRAM HYDROBROMIDE 20 MG TABLET PO SCH (08:15)
[2017-02-16] MEDS: LORATADINE 10 MG TABLET PO SCH (08:16)
[2017-02-16] MEDS: FAMOTIDINE 20 MG TABLET PO SCH (08:16)
[2017-02-16] MEDS: SACCHAROMYCES BOULARDII 250 MG CAPSULE PO SCH (08:16)
[2017-02-16] MEDS: FLUTICASONE PROPIONATE 120 SPRAY INHALER NS SCH (08:16)
[2017-02-16] MEDS: POTASSIUM CHLORIDE 20 MEQ TABLET.SA PO SCH (08:16)
[2017-02-16] MEDS: LEVOFLOXACIN 500 MG TABLET PO SCH (11:08)
--- NOTE | 2017-02-16 12:12 | DS ---
(1) Hypokalemia Problem: Acute (2) Leukocytosis Problem: Acute Qualifiers: Leukocytosis type: bandemia Qualified Code(s): D72.825 - Bandemia (3) Sepsis Problem: Acute Qualifiers: Sepsis type: Escherichia coli Qualified Code(s): A41.51 - Sepsis due to Escherichia coli [E. coli] (4) Lactic acidosis Problem: Acute (5) Pneumonia Problem: Acute Qualifiers: Pneumonia type: aspiration pneumonia Laterality: right Lung location: middle lobe of lung (6) UTI (urinary tract infection) Problem: Acute Qualifiers: Urinary tract infection type: acute cystitis Hematuria presence: with hematuria Qualified Code(s): N30.01 - Acute cystitis with hematuria (7) Hypertension Problem: Chronic Qualifiers: Hypertension type: essential hypertension Qualified Code(s): I10 - Essential (primary) hypertension (8) Hypothyroidism Problem: Chronic Qualifiers: Hypothyroidism type: acquired Qualified Code(s): E03.9 - Hypothyroidism, unspecified (9) Discharge planning issues Problem: Acute Description of Stay: Pt. admitted with sepsis from UTI, given lactic acidosis, leukocytosis, bandemia and positive urine and blood culture. This was tx with fluid resuscitation and IV meripenem. she was then found to have a pneumonia on HD #2 , CAP - aspiration type given sx of choking on food at home. She continued to improve during her stay, with lactic acidosis resolved the day prior to discharge and the WBC coming down. Her abx was changed to levaquin 500mg po daily the day prior to discharge with these improvements showing. She developed hypokalemia from the fluid resuscitation and lactic acidosis causing shifts. This was corrected mainly through oral replacement. At time of discharge she was tolerating PO well, ambulating well with minimal weakness and [place]. she still looked tired and not completely back to baseline at time of discharge, I anticipate she will continue to improve. She had rales in her RML and RLL, but this was improved at time of D/C. She did have speech consult which did a swallow study and did show aspiration risks/concerns, though no nam aspiration on the study. Mechanical soft diet and thin liquids recommended. Procedures Performed: none Discharge Disposition: Home self care Disposition: Home self-care Condition: Good Discharge Diet: [facility] soft - due to choking issues. and based on speech Tx recommendations. Referrals: Diallo Pimentel MD [Primary Care Provider] - One Week Additional Patient Instructions (free text): Please make TCM appointment at discharge, if applicable. Thank you! Carolyn @ [phone]. Prescriptions (Any new or edited meds): Levofloxacin [Levaquin] 500 mg PO DAILY@1100 #7 tablet Complete Home Medications List: Complete Home Medication List: Aspirin [Aspirin Enteric Coated] 81 mg PO DAILY 06/12/16 Buspirone HCl 15 mg PO BID 06/12/16 Cetirizine HCl [Zyrtec] 10 mg PO DAILY 06/12/16 Citalopram Hydrobromide [Celexa] 40 mg PO DAILY 06/12/16 Cyclobenzaprine HCl [Flexeril] 10 mg PO HS 06/12/16 Famotidine/Ca Carb/Mag Hydrox [Pepcid Complete Tablet Chew] 1 each PO BID Fluticasone Propionate [Flonase] 1 spray NS BID 06/12/16 Levothyroxine Sodium [Synthroid] 25 mcg PO DAILY 06/12/16 Menthol [Biofreeze] 1 appl TP Q4H PRN 06/12/16 Omeprazole [Prilosec] 20 mg PO BID 06/12/16 Simvastatin [Zocor] 20 mg PO HS 06/12/16 Verapamil HCl [Verapamil ER] 240 mg PO DAILY 06/12/16 Cyclobenzaprine HCl 5 mg PO BID 02/13/17 oxyCODONE HCL [Oxycodone] 5 mg PO QID PRN 02/13/17 Levofloxacin [Levaquin] 500 mg PO DAILY@1100 #7 tablet 02/16/17 Saccharomyces Boulardii [Florastor] 250 mg PO BID capsule 02/16/17
[2017-02-16 12:41] VITALS: BP 160/70
== END 2017-02-16 13:50 | disposition home or self-care (01) | DRG 871 ==
LOC: ER 14:18 → MS 15:58 → OBSVTOIN 02-14 08:00
PROVIDERS: ADMIT Internal Medicine; ATTEND Family Medicine
DX: A41.51 Sepsis due to Escherichia coli [E. coli] (principal); J69.0 Pneumonitis due to inhalation of food and vomit; E87.1 Hypo-osmolality and hyponatremia; E87.2 Acidosis; N30.01 Acute cystitis with hematuria; D72.825 Bandemia; E87.6 Hypokalemia; E03.9 Hypothyroidism, unspecified; I10 Essential (primary) hypertension; F41.8 Other specified anxiety disorders; Z79.82 Long term (current) use of aspirin
CPT/HCPCS: 36415; 70371; 71010; 80048; 80053; 81001; 83605; 83880; 84484; 85007; 85025; 87040; 87077; 87086; 87186; 87400; 87449; 92526; 92610; 92611; 93005; 94640; 96365; 97116; 97161; 99284; G0378

== ENCOUNTER 2018-05-27 06:19 | Inpatient (IN) ==
[~2018-05-27 06:19] MED LIST changes: +MORPHINE SULFATE 15 MG TABLET.SA PO PRN; -RINGERS SOLUTION,LACTATED 1,000 ML IV PRN; +ROPIVACAINE HCL/PF 100 MG, EPINEPHrine 0.2 MG, KETOROLAC TROMETHAMINE 30 MG in NORMAL S... IJ PRN; +TRANEXAMIC ACID 1,000 MG in NORMAL SALINE 100 ML IV PRN; +ceFAZolin SODIUM 1 GM VIAL IV PRN
[2018-05-27] MEDS: RINGER'S SOLUTION,LACTATED 1,000 ML IV PRN ×3 (07:10→09:45)
--- NOTE | 2018-05-27 07:43 | ANES ---
Anesthesia Pre Procedure Eval Vitals/Labs: Last Vital Signs Temp 37.2 C 05/27/18 06:30 Pulse 69 05/27/18 06:30 Resp 18 05/27/18 06:30 BP 139/63 05/27/18 06:30 Pulse Ox 97 05/27/18 06:30 HOME MEDICATIONS Aspirin [Aspirin Enteric Coated] 81 mg PO DAILY 06/12/16 [Last Taken 05/20/18] Citalopram Hydrobromide [Celexa] 40 mg PO DAILY 06/12/16 [Last Taken 05/26/18] Fluticasone Propionate [Flonase] 1 spray NS BID 06/12/16 [Last Taken 05/26/18] Omeprazole [Prilosec] 20 mg PO BID 06/12/16 [Last Taken 05/26/18] famotidine-Ca carb-mag hydrox 10 mg-800 mg-165 mg chewable tablet 1 tab PO BID PRN 11/29/17 [Last Taken 05/26/18] levothyroxine 25 mcg tablet 25 mcg PO DAILY #30 tab 11/29/17 [Last Taken 05/26/18] meloxicam 15 mg tablet 15 mg PO DAILY #30 tab 11/29/17 [Last Taken 05/20/18] buspirone 15 mg tablet 15 mg PO BID #180 tab 01/07/18 [Last Taken 05/26/18] simvastatin 20 mg tablet 20 mg PO DAILY #30 tab 01/23/18 [Last Taken 05/26/18] cetirizine 10 mg capsule 10 mg PO DAILY #90 cap 03/13/18 [Last Taken 05/26/18] verapamil ER 240 mg 24 hr capsule,extended release 240 mg PO DAILY #30 cap 1 06/02/17 [Last Taken 05/27/18] cyclobenzaprine 10 mg tablet See Rx Instructions PO .COMPLEX #28 tab 04/25/18 [Last Taken 05/25/18] hydrochlorothiazide 12.5 mg capsule 12.5 mg PO DAILY #90 cap 04/25/18 [Last Taken 05/27/18] Allergies/Adverse Reactions: Allergies Allergy/AdvReac Type Severity Reaction Status Date / Time Sulfa (Sulfonamide AdvReac Mild RASH Verified 05/27/18 06:31 Antibiotics) [Sulfa(Sulfonamide Antibiotics)] - Planned Procedure Planned Procedure: L total knee revision Medication List Reviewed:: Yes Allergies Verified: Yes Medical History (Last Reviewed 05/27/18 @ 07:41 by Vincent Frey CRNA) Urinary incontinence (Chronic) Onset Date: ~01/25/12 Rectal polyp (Chronic) Onset Date: ~01/25/12 Psoriasis (Chronic) Onset Date: ~10/23/12 Oral thrush (Chronic) Onset Date: ~12/21/12 Myalgia and myositis (Chronic) Onset Date: ~10/23/12 Hypothyroidism (acquired) (Chronic) Onset Date: ~12/30/13 Hypertension (Chronic) Hyperlipidemia (Chronic) Heart murmur (Chronic) Granuloma annulare (Chronic) Onset Date: ~03/10/14 GERD (gastroesophageal reflux disease) (Chronic) Depression (Chronic) Generalized anxiety disorder (Chronic) Allergic rhinitis (Chronic) Left knee pain Onset Date: ~2017 Surgical History (Last Reviewed 05/27/18 @ 07:41 by Vincent Frey CRNA) Previous back surgery H/O breast biopsy Left breast-Nolen: ductal hyperplasia, duct papilloma H/O esophagogastroduodenoscopy With biopsy. 03 Nolen. 17 Bagan-clotest negative. History of YAG laser capsulotomy of lens bilat History of colonoscopy Onset Date: ~03/12/12 History of hysterectomy Hx of cataract surgery Total knee replacement status Onset Date: [address] Layton 03/[address] Oliveira 06/2007 Family History (Last Reviewed 05/27/18 @ 07:42 by Vincent Frey CRNA) Brother Diabetes MVA (motor vehicle accident) Father Cirrhosis of liver Grandfather Diabetes Grandmother Diabetes Mother Hypothyroidism Kidney disease Glaucoma Hypertension CVA (cerebral vascular accident) Sister Colon cancer History of open heart surgery Alzheimers disease - Family Anesthesia History Family History:: no untoward family reactions to anesthesia - Airway/Neck/Teeth Within Normal Limits:: Yes Denture Type: Full upper Neck Exam: full range of motion Mallampatti Score: 2 Thyromental (T-M) distance: > 6 cm Mandibulo Hyoid distance: > 3 cm - Respiratory Respiratory Physical: lungs clear Smoking Status: Never smoker Sleep Apnea currently treated: No Sleep Apnea by current assessment: No - Cardiovascular Cardiac History: hypertension, hyperlipidemia Tolerate Activity: Fair Heart Sounds: S1 & S2, Regular - Anesthesia Assessment and Plan ASA Class: PS, III Anesthesia Type Plan: Spinal - adductor canal block for postop analgesia
[2018-05-27] MEDS ORDERED: MORPHINE SULFATE 2 MG/ML DISP.SYRIN IV PRN (10:44)
[2018-05-27] MEDS ORDERED: ZOLPIDEM TARTRATE 5 MG TABLET PO PRN (10:44)
[2018-05-27] MEDS ORDERED: ACETAMINOPHEN 500 MG TABLET PO PRN (10:44)
[2018-05-27] MEDS ORDERED: MAG HYDROX/ALUMINUM HYD/SIMETH 30 ML UDC PO PRN (10:44)
[2018-05-27] MEDS ORDERED: diphenhydrAMINE HCL 50 MG/ML VIAL IV PRN (10:44)
[2018-05-27] MEDS ORDERED: MAGNESIUM HYDROXIDE 30 ML UDC PO PRN (10:44)
[2018-05-27] MEDS ORDERED: ONDANSETRON HCL/PF 2 MG/ML VIAL IV PRN (10:44)
[2018-05-27] MEDS ORDERED: [UNRECOGNIZED DRUG - OTHER] PO PRN (10:46)
[2018-05-27] MEDS ORDERED: FAMOTIDINE PO PRN (10:46)
[2018-05-27] MEDS ORDERED: MAGNESIUM HYDROXIDE PO PRN (10:46)
[2018-05-27] MEDS ORDERED: CALCIUM CARBONATE PO PRN (10:46)
--- NOTE | 2018-05-27 10:55 | OR ---
Operative Report - Dictated Report Narrative: DATE OF PROCEDURE: 05/27/2018 PHYSICIAN: Pool Jacobsen MD RN RESOURCE NURSE: Gage Brizuela MD (provided an educated set of skilled hands that consisted with transfer, positioning, prepping, draping, traction, manipulation, irrigation, placement of implants, placement of instruments, closure of wounds, application of dressings, all of which could not be performed by the available surgical crew). PREOPERATIVE DIAGNOSIS: Instability, status post left total knee arthroplasty. POSTOPERATIVE DIAGNOSIS: Instability, status post left total knee arthroplasty. OPERATIONS AND PROCEDURES: Revision left total knee arthroplasty, revision of surgical scar 21 cm. ANESTHESIA: Spinal plus regional plus periarticular local. ESTIMATED BLOOD LOSS: Minimal TOURNIQUET TIME: 121 minutes at 325 mmHg. SPECIMENS: Implants for disposal, tissue for acute inflammation, culture x1. COMPLICATIONS: None. RETAINED IMPLANTS: DePuy Attune revision CRS size 3 left femur cemented, 8 mm distal lateral augment, 4 mm distal medial, posterior medial, and posterior lateral augments attune revision press-fit stem 12 x 60 mm, attune revision porocoat fully coated femoral sleeve 30 mm, size 3 revision tibial baseplate rotating platform, revision tibial sleeve Porocoat fully coated 29 mm, revision press-fit stem 12 mm x 60 mm, CRS revision rotating platform insert size 3 x 16 mm crosslinked polyethylene. INDICATIONS FOR PROCEDURE: Mrs. Simpson is a 72-year-old female who underwent a cruciate retaining left total knee arthroplasty in the past at an outside facility. She injured the knee resulting in a feeling of instability of her knee. She was seen in clinic and was noted to have instability, most notably the posterior cruciate ligament with some coronal instability as well. She had an aspirate, which was bloody and negative for infection and had x-rays that showed no signs of implant loosening; however, she did show signs of instability. Options for treatment were discussed including bracing, observation, and surgical revision. She wished to proceed with revision. The risks, benefits, and alternatives were discussed in clinic. The risk of , blood clots, bleeding, infection, nerve/tendon/blood vessel injury, malposition of implants, persistent pain, failure of implants, loosening, stiffness, need for additional procedures, and she wished to proceed. Consent was obtained in the clinic. PROCEDURE: After marking the correct extremity in the preoperative holding area, the patient was taken to the operating room. A timeout was performed. IV antibiotics consisting of Ancef was administered prior to procedure. A regional followed by spinal anesthetic was induced at my request by anesthesia. A Maza catheter was placed and a bump was placed under the left buttock. A well-padded tourniquet was applied to the left thigh. Left leg was then prepped and draped in standard sterile fashion. She was noted to have recurvatum when lifting the leg and had 2-3 mm of gapping of varus and valgus stressing at all flexion points as well as an unstable drawer. Her range of motion was 5 of recurvatum to 130 of flexion. After prepping and draping the leg in standard sterile fashion, exsanguinating the extremity and inflating the tourniquet to 325 mmHg, a previous anterior incision was excised over a length of 21 cm. Sharp dissection was carried through the skin. There were retained nonabsorbable sutures which were removed. The medial retinaculum was marked out and a paramedial arthrotomy was made. There was notable effusion, but no gross signs of purulence or infectious appearing tissues. A partial synovectomy was performed. The scar tissue was excised. The gutters were cleaned, and the previous polyethylene was excised. The knee was hyperflexed and attention was turned to the femur. A series of osteotomes were utilized in order to disengage the cement bone implant interface, removing the femoral component. Again, this was a cruciate retaining implant. We then turned our attention to the tibia. A series of osteotomes and saw was utilized in order to free the tissue to best of our abilities. The tibia was then removed. The implants revealed no signs of significant wear or damage. It was noted that the posterior cruciate ligament was disrupted. We then proceeded to prepare the tibia. The entry reamer up to a size 12 tibial reamer was utilized in order to repair the tibial canal. An entry reamer for the implant as well as a 29mm broach was utilized which gave good stability with good fill of the proximal tibial metaphysis. The proximal tibia was then cleaned and cut in order to provide a flat surface. There was some mild disruption of the posterior and lateral bony cortical rinds, but an intact defect without any blowout of these areas. The trial tray size 3 was then impacted with the trial sleeve and this was secured with a punch. Once it was felt that we prepared the tibia, we turned our attention to the femur. A series of reamers were utilized in order to open up the femoral canal up to a size 12. The femoral sleeve with broach was utilized up to a size 30mm. A clean-up distal cut was made, followed by the 3-in-1 cutting block, which was placed under tension in both flexion and extension in order to make sure that we had a symmetrical box. This was pinned in slight external rotation. Clean-up cuts were then made for augment, 8 mm distal lateral and 4 mm posterior medial and lateral, and 4 mm distal medial. The trial components were assembled and impacted for trial. A series of inserts were utilized up to a size 16, which gave good stability in flexion and was able to reach maximal extension without hyperextension, stable to varus and valgus stressing as well as drawer. The patella tracked appropriately and overall, it was felt these were the appropriate implants. The implants were removed. The tissue was thoroughly irrigated with pulsatile saline irrigation. Prior to this, the tissue was sent to pathology for acute inflammation, was noted to have less than 5 neutrophils per high-powered field, and culture was also obtained and sent to pathology. Once the bone was thoroughly irrigated and dried, a periarticular joint injection of ropivacaine, Toradol, and epinephrine was placed. The cement was vacuum mixed per medical officer's instructions. The implants were assembled on the back table, and cement was placed on the appropriate surfaces, avoiding any cement on the ingrown surface or the stems, and the implants were then impacted. Once the cement was fully cured, the extruded cement was removed. The final polyethylene insert was placed. The knee was again placed through range of motion and was able to reach full extension, flexion 130 degrees with appropriate tracking of the patella, and no instability. A drain was placed exiting superolaterally. The tourniquet was deflated. Hemostasis was obtained. Capsule was closed with interrupted #1 Vicryl. The deep tissues with 0 Vicryl, subcutaneous tissue with 3-0 Vicryl and 3-0 Monocryl, and the skin with a Dermabond dressing. A 4 x 4s, Sof-Rol and a full leg Den was applied and the patient was awoken and transferred to postanesthesia care unit in stable condition. All sponge, needle, and instrument counts were correct prior to closing the wounds.
--- NOTE | 2018-05-27 11:05 | ANES ---
Post Anesthesia Discharge - Transfer of Care Transfer of Care handoff given to nurse: Yes - Discharge from PACU Discharge from PACU when meets criteria: Yes
--- NOTE | 2018-05-27 11:10 | ANES ---
Anesthesia Procedure Note Procedure Note: ANESTHESIA PROCEDURE NOTE Date of procedure: 05/27/2018. Time of procedure: 08 00. Performed by: Tashi Frey CRNA Director Of Neurology: Lucita Ko RN . Preprocedure diagnosis: Mechanical instability left prosthetic knee. Desire for postoperative analgesia. Post procedure diagnosis: Same. Procedure: Ultrasound-guided left adductor canal block Indications: Postoperative pain relief. Findings: Patient was brought to operating room #4 and placed in a supine position. Patient was sedated. Patient's left inner thigh was prepped with ChloraPrep. Ultrasound was utilized to notify left adductor canal. A 20-gauge 4 inch regional block needle was advanced under ultrasound guide until tip of n eedle was positioned in adductor canal. 20 mL 0.25% Marcaine with epinephrine 1-200,000 was injected with adequate spread of local anesthesia noted. Regional block needle was removed intact. EBL: Minimal. Fluids: N/A. Specimen: N/A. Post procedure condition: The patient tolerated the procedure well. No complications were noted. Thank you for this consultation Tashi Frey CRNA
--- NOTE | 2018-05-27 11:51 | ANES ---
Post Anesthesia Assessment - Vital Signs Vitals: Last Vital Signs Temp 37.3 C 05/27/18 11:45 Pulse 84 05/27/18 11:45 Resp 12 05/27/18 11:45 BP 146/59 05/27/18 11:45 Pulse Ox 95 05/27/18 11:45 Airway Patency: Normal - Mental Status Level Of Consciousness: Awake - Pain Level Pain Score: 6 - N/V Assessment Nausea/Vomiting Presence: None - Pain being treated Dehydration:: No
[2018-05-27] MEDS: DEXTROSE 5%-LACTATED RINGERS 1,000 ML IV PRN ×2 (12:09→20:49)
[2018-05-27] MEDS: KETOROLAC TROMETHAMINE 15 MG/ML VIAL IV SCH ×2 (12:15→18:00)
[2018-05-27] MEDS: ceFAZolin SODIUM 1 GM in DEXTROSE 5 % IN WATER 100 ML IV SCH ×4 (14:09→19:51)
[2018-05-27] MEDS: oxyCODONE HCL/ACETAMINOPHEN 1 TAB TABLET PO PRN (15:19)
[2018-05-27] MEDS: CYCLOBENZAPRINE HCL 10 MG TABLET PO SCH (15:21)
[2018-05-27] MEDS ORDERED: SENNOSIDES/DOCUSATE SODIUM 1 TAB TABLET PO SCH (21:00)
[2018-05-27] MEDS ORDERED: CYCLOBENZAPRINE HCL 10 MG TABLET PO SCH (21:00)
[2018-05-27] MEDS ORDERED: SIMVASTATIN 20 MG TABLET PO SCH (21:00)
[2018-05-27] MEDS: busPIRone HCL 5 MG TABLET PO SCH (21:15)
[2018-05-27] MEDS: FLUTICASONE PROPIONATE 120 SPRAY INHALER NS SCH (21:17)
[2018-05-27] MEDS: PANTOPRAZOLE SODIUM 20 MG TABLET.DR PO SCH (21:17)
[2018-05-27] MEDS: MORPHINE SULFATE 15 MG TABLET.SA PO SCH (21:21)
[2018-05-28] MEDS: oxyCODONE HCL/ACETAMINOPHEN 1 TAB TABLET PO PRN ×3 (00:01→12:23)
[2018-05-28] MEDS: ceFAZolin SODIUM 1 GM in DEXTROSE 5 % IN WATER 100 ML IV SCH ×2 (02:37)
[2018-05-28 05:28] LABS: Hematocrit 30.7 % (37.0-47.0); Hemoglobin 9.9 gm/dL (12.5-16.0); Mean Cell Volume 91.6 fl (78-100); Mean Corpuscular Hemoglobin 29.6 pg (27-31); Mean Corpuscular Hgb Conc 32.2 g/dl (32-36); Mean Platelet Volume 8.9 fl (8-12.5); Platelet Count 189 K/mm3 (150-450); Red Blood Count 3.35 M/mm3 (4.2-5.4); Red Cell Distribution Width 13.4 % (11.5-14.0); White Blood Count 7.9 K/mm3 (4.0-10.5)
[2018-05-28 05:32] LABS: Anion Gap 9.1 mmol/L (6.8-13.8); BUN/Creatinine Ratio 7.7 (9.0-21.6); Calcium * 8.5 mg/dL (7.9-10.9); Carbon Dioxide 31.8 mmol/L (24-32.6); Estimated Creat Clear 51.1; Potassium 3.9 mmol/L (3.4-4.6)
[2018-05-28] MEDS: KETOROLAC TROMETHAMINE 15 MG/ML VIAL IV SCH ×3 (05:36→11:18)
[2018-05-28] MEDS ORDERED: LEVOTHYROXINE SODIUM 25 MCG TABLET PO SCH (07:00)
[2018-05-28] MEDS: CYCLOBENZAPRINE HCL 10 MG TABLET PO SCH (07:03)
[2018-05-28] MEDS: PANTOPRAZOLE SODIUM 20 MG TABLET.DR PO SCH (07:03)
[2018-05-28] MEDS: busPIRone HCL 5 MG TABLET PO SCH (08:39)
[2018-05-28] MEDS: FLUTICASONE PROPIONATE 120 SPRAY INHALER NS SCH (08:42)
[2018-05-28] MEDS: MORPHINE SULFATE 15 MG TABLET.SA PO SCH (08:45)
[2018-05-28] MEDS ORDERED: VERAPAMIL HCL 240 MG TABLET.SA PO SCH (09:00)
[2018-05-28] MEDS ORDERED: CITALOPRAM HYDROBROMIDE 20 MG TABLET PO SCH (09:00)
[2018-05-28] MEDS ORDERED: HYDROCHLOROTHIAZIDE 12.5 MG CAPSULE PO SCH (09:00)
[2018-05-28] MEDS ORDERED: LORATADINE 10 MG TABLET PO SCH (09:00)
[2018-05-28] MEDS ORDERED: ENOXAPARIN SODIUM 30 MG/0.3 ML SYRG SC SCH (09:44)
--- NOTE | 2018-05-28 12:04 | DS ---
(1) Vertigo Problem: Chronic (2) Allergic rhinitis Problem: Chronic (3) Anxiety and depression Problem: Chronic (4) Depression Problem: Chronic (5) GERD (gastroesophageal reflux disease) Problem: Chronic (6) Heart murmur Problem: Chronic (7) Hyperlipidemia Problem: Chronic (8) Hypertension Problem: Chronic Qualifiers: (9) Hypothyroidism Problem: Chronic Qualifiers: (10) Psoriasis Problem: Chronic (11) Urinary incontinence Problem: Chronic (12) Status post revision of total knee Problem: Acute Qualifiers: Laterality: left Qualified Code(s): Z96.652 - Presence of left artificial knee joint Description of Stay: Mrs. Simpson was admitted to the floor after undergoing revision left total knee arthroplasty. Tolerated this well. Was admitted to the floor postoperatively for 24 hours of IV antibiotics, pain control, medical comanagement, and occupational and physical therapy. OT and PT were consulted to assist with activities of daily living and ambulation. Was made weightbearing as tolerated with range of motion as tolerated. Pain was initially controlled with IV regimen. This was transitioned to oral once tolerating a by mouth intake. Was resumed on home diet and medications. Had a Maza catheter inserted and the operating room which was discontinued on postoperative day 1. A drain was placed intraoperatively into the knee which was discontinued on postoperative day 1. Lovenox SCD and SHENA hose were utilized for DVT prophylaxis. Vital signs remained stable to the hospital course. Serial labs were obtained which showed a final hemoglobin of 9.9 grams. BMP was reviewed and was stable. Physical examination throughout the hospital course showed an extremity that had sensation that was intact to light touch, palpable pulses, a benign wound, motor intact to the toes, ankle, and knee. Knee range of motion was approximately 0 degrees to 60 degrees. Once an oral pain regimen was tolerated and physical therapy goals were met, it was felt that they were stable for discharge to home. Instructions: Continue with weightbearing as tolerated and range of motion as tolerated. It is okay to shower and get the wound wet as long as there is no drainage from the wound. Do not bathe or soak the wound. If there is any drainage from the wound keep the wound clean and dry and cover with dry gauze and tape. Change every 2- 3 days as needed if there is any drainage. Cover wound while showering if there is any drainage. Continue with physical therapy. Resume home diet. Report any fever over 101.5 Fahrenheit, uncontrolled pain, increased drainage, foul odor of drainage, new or increased calf pain or shortness of breath, or any other significant complaints. A 325mg daily aspirin will be started after finishing anticoagulation if not allergic. Continue with SHENA hose on the operative extremity until instructed otherwise. No driving until instructed otherwise. Follow up in approximately 10-14 days. Procedures Performed: see notes below List Procedures: Revision left total knee arthroplasty Results and Findings: Pending Mircobiology Results 05/27/18 10:22 Knee - Left Surgical Culture - Preliminary No Growth Lab Pending Results 05/28/18 05:05: WBC 7.9, RBC 3.35 L, Hgb 9.9 L, Hct 30.7 L, MCV 91.6, MCH 29.6, MCHC 32.2, RDW 13.4, Plt Count 189, MPV 8.9 05/28/18 05:05: Sodium 135, Plasma Sodium 135, Potassium 3.9, Chloride 98, Carbon Dioxide 31.8, Anion Gap 9.1, BUN 6 D, Creatinine 0.78, Est GFR (Non-Af Amer) 77, BUN/Creatinine Ratio 7.7 L, Random Glucose 118 H, Calcium 8.5 Discharge Location: Home Disposition: Home self-care Condition: Good Discharge Activity: Activity as tolerated, Weight bearing Discharge Diet: General/regular food Referrals: Diallo Pimentel MD [Primary Care Provider] - Additional Patient Instructions (free text): Physical therapy outpatient at [facility] rehab on Sunday05/29/18 @ 10:[address] Jacobsen office appointment on Sunday06/18/18 @ 10:45 am. Prescriptions (Any new or edited meds): Morphine Sulfate [Ms Contin] 15 mg PO Q12H #14 tablet.sa oxyCODONE HCL/ACETAMINOPHEN [Percocet 5 MG/325 MG] 2 tab PO Q4H PRN #60 tab PRN Reason: Moderate Pain (Pain Scale 4-6) Promethazine HCl [Phenergan (Promethazine)] 25 mg PO Q6H PRN #30 tab PRN Reason: nausea/vomiting Rivaroxaban [Xarelto] 10 mg PO DAILY #7 tab Sennosides/Docusate Sodium [Senokot-S] 2 tab PO HS #60 tab Complete Home Medications List: Complete Home Medication List: Citalopram Hydrobromide [Celexa] 40 mg PO DAILY 06/12/16 Fluticasone Propionate [Flonase] 1 spray NS BID 06/12/16 Omeprazole [Prilosec] 20 mg PO BID 06/12/16 famotidine-Ca carb-mag hydrox 10 mg-800 mg-165 mg chewable tablet 1 tab PO BID PRN 11/29/17 levothyroxine 25 mcg tablet 25 mcg PO DAILY #30 tab 11/29/17 meloxicam 15 mg tablet 15 mg PO DAILY #30 tab 11/29/17 buspirone 15 mg tablet 15 mg PO BID #180 tab 01/07/18 simvastatin 20 mg tablet 20 mg PO DAILY #30 tab 01/23/18 cetirizine 10 mg capsule 10 mg PO DAILY #90 cap 03/13/18 verapamil ER 240 mg 24 hr capsule,extended release 240 mg PO DAILY #30 cap 04/01/18 cyclobenzaprine 10 mg tablet See Rx Instructions PO .COMPLEX #28 tab 04/25/18 hydrochlorothiazide 12.5 mg capsule 12.5 mg PO DAILY #90 cap 04/25/18 Morphine Sulfate [Ms Contin] 15 mg PO Q12H #14 tablet.sa 05/28/18 Promethazine HCl [Phenergan (Promethazine)] 25 mg PO Q6H PRN #30 tab 05/28/18 Rivaroxaban [Xarelto] 10 mg PO DAILY #7 tab 05/28/18 Sennosides/Docusate Sodium [Senokot-S] 2 tab PO HS #60 tab 05/28/18 oxyCODONE HCL/ACETAMINOPHEN [Percocet 5 MG/325 MG] 2 tab PO Q4H PRN #60 tab 05/28/18 Amb Orders for Discharge: PT Evaluation and Treatment* Facility: [facility], Location: Rehabilitation Services
[2018-05-28 15:28] VITALS: BP 146/68
== END 2018-05-28 15:35 | disposition home or self-care (01) | DRG 909 ==
LOC: MS 06:19
PROVIDERS: ADMIT Orthopaedic Surgery; ATTEND Orthopaedic Surgery
CPT/HCPCS: 36415; 73560; 80048; 85027; 87070; 87075; 88305; 88331; 97110; 97116; 97162; 97165; J2405